=== PATIENT | male | born 1965 | race Hispanic/Latino ===

== ENCOUNTER 2024-11-07 07:28 | Emergency (ER) | payer OTHER ==
[2024-11-07 08:59] LABS: Bilirubin Neg (Negative); Blood, Urine 25 (Negative); Clarity Clear (Clear); Glucose, Urine (Dipstick) >=1000 mg/dL (Negative); Ketone, Urine 50 mg/dL (Negative); Leukocyte 500 (Negative); Nitrite Negative (Negative); Protein, Urine (Dipstick) 15 mg/dl (Neg-Trace); Specific Gravity, Urine 1.015 (1.005-1.030); Urobilinogen Normal mg/dL (Less than 2)
[2024-11-07 09:12] LABS: CAUTI Indications for Culture Pelvic or flank pain; RBC/HPF 0-3 HPF (0-3); Squamous Epithelial 0-3 HPF (0-3); WBC/HPF 21-50 HPF (0-3)
[2024-11-07 09:13] LABS: Bacteria/HPF 3+ HPF (None Seen); Urine Culture Reflex Yes Yes; White Blood Cell Cast 0-3 LPF (None Seen)
[2024-11-07] MEDS ORDERED: Cefdinir 300 MG CAP ONE (09:31)
[2024-11-07] MEDS ORDERED: Phenazopyridine HCl 95 MG TAB ONE (09:39)
== END 2024-11-07 09:40 | disposition home or self-care (01) ==
LOC: CSHERS 07:28
DX: N39.0 Urinary tract infection, site not specified (principal); E11.9 Type 2 diabetes mellitus without complications; I10 Essential (primary) hypertension
CPT/HCPCS: 81001; 87077; 87086; 87186; 99283

== ENCOUNTER 2025-07-04 10:49 | Outpatient (CLI) | payer BC | END 2025-07-04 10:50 | disposition home or self-care (01) | LOC: CSHRAD 10:49 | PROVIDERS: ATTEND Surgery | DX: N32.1 Vesicointestinal fistula (principal); Z93.2 Ileostomy status | CPT/HCPCS: 74270 ==

== ENCOUNTER 2025-07-04 12:08 | Outpatient (CLI) | payer BC ==
[2025-07-04 13:19] LABS: #Basophils 0.07 10x3/uL (0.0-0.2); #Eosinophils 0.08 10x3/uL (0.0-0.5); #Monocytes 0.62 10x3/uL (0.0-1.1); #Neutrophils 3.74 10x3/uL (1.5-8.4); %Basophils 1.2 % (0.0-2.0); %Eosinophils 1.3 % (0.0-6.0); %Lymphocytes 23.9 % (18.0-47.0); %Monocytes 10.4 % (0.0-10.0); %Neutrophils 63.0 % (40.0-75.0); Hematocrit 42.0 % (38.8-50.0); Hemoglobin 14.2 g/dL (13.5-17.5); Mean Corpuscular Hemoglobin 28.3 pg (27.0-33.0); Mean Corpuscular Volume 83.7 fL (81.2-95.1); Platelet Count 218 10x3/uL (150-450); Red Blood Cell (RBC) Count 5.02 10x6/uL (4.32-5.72); White Blood Cell (WBC) Count 5.94 10x3/uL (3.5-10.5)
[2025-07-04 13:34] LABS: Anion Gap 13 mmol/L (10-20); BUN (Urea Nitrogen) 10 mg/dL (8.4-25.7); Calc. Creatinine Clearance 0 mL/min (70-130); Calcium 9.7 mg/dL (7.8-10.44); Carbon Dioxide 26 mmol/L (22-29); Chloride 104 mmol/L (98-107); Glucose 223 mg/dL (70-105); Potassium 4.3 mmol/L (3.5-5.1); Sodium 139 mmol/L (136-145)
== END 2025-07-04 12:09 | disposition home or self-care (01) ==
LOC: CSHLAB 12:08
PROVIDERS: ATTEND Surgery
DX: Z01.812 Encounter for preprocedural laboratory examination (principal); K94.13 Enterostomy malfunction; N32.1 Vesicointestinal fistula
CPT/HCPCS: 74270; 80048; 85025

== ENCOUNTER 2025-07-04 12:30 | Inpatient (IN) | payer BC ==
[2025-07-13] MEDS ORDERED: CEFAZOLIN 2 GM VIAL ONE (11:28)
[2025-07-13] MEDS ORDERED: Rocuronium Bromide 10 MG/ML (10ML VIAL) ONE (11:37)
[2025-07-13] MEDS ORDERED: PROPOFOL 20 ML ONE (11:37)
[2025-07-13] MEDS ORDERED: Bupivacaine/Epinephrine 0.25% 30 ML VIAL ONE (11:40)
[2025-07-13] MEDS ORDERED: PHENYLEPHRINE-NS 100 MCG/ML 10 ML SYRINGE ONE (13:06)
[2025-07-13] MEDS ORDERED: HYDROmorphone 0.5 MG/0.5 ML SYRINGE ONE ×2 (14:18→14:31)
[2025-07-13] MEDS ORDERED: Dextrose 50% Abboject 50 ML SYRINGE SLOW IVP PRN ×2 (15:20)
[2025-07-13] MEDS ORDERED: Glucagon 1 MG/ML KIT IM PRN ×2 (15:20)
[2025-07-13] MEDS ORDERED: hydrALAZINE 20 MG/ML VIAL SLOW IVP PRN (15:20)
[2025-07-13] MEDS ORDERED: Ondansetron PF 4 MG/2 ML Vial IVP PRN (15:20)
[2025-07-13] MEDS: Acetaminophen 500 MG TAB PO SCH (15:53)
[2025-07-13] MEDS: oxyCODONE 5 MG TAB PO PRN (15:54)
[2025-07-13] MEDS: Famotidine 20 MG TAB PO SCH (20:49)
[2025-07-13] MEDS ORDERED: Famotidine/PF 20 mg/2ml Vial SLOW IVP PRN (21:00)
[2025-07-14 05:40] LABS: #Basophils 0.06 10x3/uL (0.0-0.2); #Eosinophils 0.03 10x3/uL (0.0-0.5); #Monocytes 0.87 10x3/uL (0.0-1.1); #Neutrophils 5.17 10x3/uL (1.5-8.4); %Basophils 0.8 % (0.0-2.0); %Eosinophils 0.4 % (0.0-6.0); %Lymphocytes 20.6 % (18.0-47.0); %Monocytes 11.2 % (0.0-10.0); %Neutrophils 66.7 % (40.0-75.0); Hematocrit 35.7 % (38.8-50.0); Hemoglobin 12.2 g/dL (13.5-17.5); Mean Corpuscular Hemoglobin 28.4 pg (27.0-33.0); Mean Corpuscular Volume 83.2 fL (81.2-95.1); Platelet Count 241 10x3/uL (150-450); Red Blood Cell (RBC) Count 4.29 10x6/uL (4.32-5.72); White Blood Cell (WBC) Count 7.75 10x3/uL (3.5-10.5)
[2025-07-14 06:00] LABS: Anion Gap 10 mmol/L (10-20); BUN (Urea Nitrogen) 10 mg/dL (8.4-25.7); Calc. Creatinine Clearance 143 mL/min (70-130); Calcium 8.4 mg/dL (7.8-10.44); Carbon Dioxide 27 mmol/L (22-29); Chloride 105 mmol/L (98-107); Glucose 153 mg/dL (70-105); Potassium 4.0 mmol/L (3.5-5.1); Sodium 138 mmol/L (136-145)
[2025-07-14] MEDS: Losartan 25 MG TAB PO SCH (08:38)
[2025-07-14] MEDS: Rosuvastatin 20 MG TAB PO SCH (08:38)
[2025-07-14] MEDS: Pantoprazole 40 MG DR.TAB PO SCH (08:38)
[2025-07-14 12:15] VITALS: BP 120/75; TEMP 98.5
[2025-07-14 12:30] VITALS: BMI 20.1
== END 2025-07-14 12:35 | disposition home or self-care (01) | DRG 330 ==
LOC: CSHTELE 07-13 09:46 → INTOOBSV 07-13 09:46 → CSHTELE 07-13 15:16 → OBSVTOIN 07-14 09:38
PROVIDERS: ADMIT Surgery; ATTEND Surgery
PROC: 0DBB0ZZ Excision of Ileum, Open Approach (ICD-10-PCS; principal; 2025-07-13)
DX: K94.13 Enterostomy malfunction (principal); N32.1 Vesicointestinal fistula; Z79.4 Long term (current) use of insulin; Z79.84 Long term (current) use of oral hypoglycemic drugs; Z79.899 Other long term (current) drug therapy
CPT/HCPCS: 36416; 80048; 85025; 88304; 94762; A4649; J0694; J1171; J1815; J2704; J7030